=== PATIENT | female | born 1930 | race Caucasian/White ===

== ENCOUNTER → 2017-07-16 | Outpatient (CLI) | payer MEDICARE, OTHER ==
[~2017-07-16] MED LIST: AMLO-1 PO; AMLO-96 PO; ASPI-757 PO; ASPI81TA94 PO; CALC-857 PO; CALC-861 PO; CEP500 PO; COS10OD OS; COS10OD OU; EYE15DRO2 OP; EYE15DRO2 OU; LISI-355 PO; OMEP-125 PO; OMEP-137 PO; OMEP-153 PO; PNEU0.5D3 IM; ROSU10TA13 PO; TRIA10VI OP; TRIC15T
[2017-07-16 08:46] LABS: PLATELET COUNT, AUTOMATED 197 K/uL (150-450)
== END ==
LOC: LAB 08:32
PROVIDERS: ATTEND Emergency Medicine
DX: E78.00 Pure hypercholesterolemia, unspecified (principal); I10 Essential (primary) hypertension; M81.0 Age-related osteoporosis without current pathological fracture
CPT/HCPCS: 36415; 82040; 82247; 82306; 82310; 82374; 82435; 82465; 82565; 82947; 83718; 84075; 84132; 84155; 84295; 84450; 84460; 84478; 84520; 85025

== ENCOUNTER → 2017-08-22 | Outpatient (CLI) | payer MEDICARE, OTHER ==
[~2017-08-22] MED LIST changes: +COMODPT OD; +LATA2.5D7 OP
--- NOTE | 2017-08-23 09:21 | RADIOLOGY IMAGING REPORT ---
FACILITY: [facility] - [place] PATIENT NAME: GAIL GOTTI : [id number] MR: [id number] V: [id number] EXAM DATE: ORDERING PHYSICIAN: JACQUE HOOKS TECHNOLOGIST: Sheela Peter EXAMINATION:TWO-DIMENSIONAL ECHOCARDIOGRAPH REASON:MURMUR 2D Measurements (normal values in centimeters) LV endLV endRV endVent.LV PostAorticLeftPercent DiastolicSystolicDiastolicSeptumWallRootAtriumShortening (3.5-5.7)(0.9-2.6)(0.6-1.1)(0.6-1.1)(2.0-3.7)(1.9-4.0)(25-35%) [id number]% STROKE VOLUME: 51ml ESTIMATED EJECTION FRACTION:66% PARASTERNAL LONG AXIS: Overall left ventricular systolic function appears to be normal. No specific wall motion abnormalities are noted. Aortic valve & mitral valve both appear to open normally. There is mitral annular calcification in the posterior leaflet of the mitral valve. The right ventricle appears to contract normally & the TAPSE is measured within normal ranges at 2.1. Color examination of the valves reveals a trace of aortic insufficiency & a trace of mitral insufficiency present. There is also a trace of tricuspid insufficiency present. PARASTERNAL SHORT AXIS: Overall left ventricular systolic function again appears to be normal & the chamber sizes also appear to be normal. The aortic valve is probably trileaflet in configuration although it is not seen well. Color examination reveals a trace of aortic insufficiency. Color examination of the pulmonic valve was unremarkable. APICAL FOUR AND TWO CHAMBER: Normal left ventricular ejection fraction. Normal chamber sizes. Aortic valve & mitral valve area both measure within normal ranges at 1.6 & 2.3cm2 respectively. The tricuspid regurgitation Vmax measured 2.42m/sec. Trace of tricuspid insufficiency. Also a trace of mitral insufficiency as well. SUBCOSTAL VIEW: No pericardial effusion was noted. No atrioseptal or ventriculoseptal defects were appreciated. Doppler examination of the mitral valve in diastole does reveal the A wave > E wave. Strain measurements were all measured within normal ranges. OVERALL IMPRESSION: 1. Normal left ventricular systolic function. Estimated ejection fraction 66% with a Grade 1 mild decrease in diastolic function. 2. There are normal chamber sizes. 3. There is a trace of mitral, tricuspid & aortic insufficiency with no stenosis of any of the valves. The estimated right ventricular systolic pressure was within normal ranges at 26mm Hg. 4. There is mild mitral annular calcification but no stenosis. Dictated by: Fabio Eaton M.D. on 08/22/2017 at 19:26 Transcribed by: MAIRA on 08/23/2017 at 8:46 Approved by: Fabio Eaton M.D. on 08/23/2017 at 9:19 [facility]
--- NOTE | 2017-08-23 09:58 | RADIOLOGY IMAGING REPORT ---
[facility] PATIENT NAME: GAIL GOTTI : [id number] MR: [id number] V: [id number] EXAM DATE: ORDERING PHYSICIAN: JACQUE HOOKS TECHNOLOGIST: Lizzy Higuera PROCEDURE:BILATERAL DIGITAL SCREENING MAMMOGRAM WITH CAD ASSISTED INTERPRETATION & 3D TOMOSYNTHESIS COMPARISON:Prior mammograms 07/14/15, 07/09/14, 05/26/12, 05/25/11. INDICATIONS:SCREENING FINDINGS: Small to moderate amount of fibroglandular tissue is seen throughout the breasts. The parenchymal pattern has remained stable allowing for difference in mammographic technique & patient positioning. There is no evidence of malignant appearing mass, malignant appearing calcifications or other secondary sign of malignancy in either breast. DIAGNOSTIC CATEGORY 1--NEGATIVE. RECOMMENDATIONS: ROUTINE MAMMOGRAM AND CLINICAL EVALUATION. IMPRESSION: BIRADS 1: Negative No significant abnormality is seen. Dictated by: Linda Olivera M.D. on 08/22/2017 at 16:33 Transcribed by: TODD on 08/23/2017 at 7:40 Approved by: Linda Olivera M.D. on 08/23/2017 at 9:57 [facility]
== END ==
LOC: MAMO 00:53
PROVIDERS: ATTEND Emergency Medicine
DX: Z12.31 Encounter for screening mammogram for malignant neoplasm of breast (principal); I50.30 Unspecified diastolic (congestive) heart failure; I34.0 Nonrheumatic mitral (valve) insufficiency; I07.1 Rheumatic tricuspid insufficiency; I35.1 Nonrheumatic aortic (valve) insufficiency; I25.10 Atherosclerotic heart disease of native coronary artery without angina pectoris
CPT/HCPCS: 77063; 77067; 93306

== ENCOUNTER → 2018-07-24 | Outpatient (CLI) | payer MEDICARE, OTHER ==
[~2018-07-24] MED LIST changes: +AMLO-125 PO; -AMLO-96 PO; -ROSU10TA13 PO; +ROSU10TA5 PO
[2018-07-24 09:20] LABS: PLATELET COUNT, AUTOMATED 251 K/uL (150-450)
== END ==
LOC: LAB 08:48
PROVIDERS: ATTEND Emergency Medicine
DX: E78.00 Pure hypercholesterolemia, unspecified (principal); I10 Essential (primary) hypertension
CPT/HCPCS: 36415; 82040; 82247; 82310; 82374; 82435; 82465; 82565; 82947; 83718; 84075; 84132; 84155; 84295; 84450; 84460; 84478; 84520; 85025